=== PATIENT | male | born 1995 | race Caucasian/White ===

== ENCOUNTER 2020-03-19 18:33 | Emergency (ER) | payer SELFPAY ==
[~2020-03-19] VITALS: Ht 182.9 cm; Wt 115.7 kg
== END 2020-03-19 19:45 | disposition home or self-care (01) ==
LOC: ED 18:33
DX: S92.514A Nondisplaced fracture of proximal phalanx of right lesser toe(s), initial encounter for closed fracture (principal); W55.12XA Struck by horse, initial encounter
CPT/HCPCS: 73630; 99283-25

== ENCOUNTER 2020-04-17 10:13 | Emergency (ER) | payer SELFPAY ==
[~2020-04-17] VITALS: Ht 182.9 cm; Wt 115.7 kg
--- OUTSIDE RECORDS SUMMARY | 2020-04-17 10:16 | XMS ---
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 Booker has no Care Guidelines for this patient. [facility] MO[facility] NOTE: Visits indicate total known visits. ED/[facility] [place] TRACKING (12 MO.) 04/17/2020 10:[address] [facility] [place] TYPE: Emergency COMPLAINT: - NECK PAIN 03/19/2020 18:34 [facility] [place] TYPE: Emergency COMPLAINT: - FOOT WAS STEPPED ON BY HORSE DIAGNOSES: - Struck by horse, initial encounter - Nondisplaced fracture of proximal phalanx of right lesser toe(s), initial encounter for closed fracture INPATIENT VISIT TRACKING (12 MO.) No inpatient visits to display in this time frame [id number]
[2020-04-17] MEDS ORDERED: CYCLOBENZAPRINE10 MG PO (10:55)
== END 2020-04-17 11:24 | disposition home or self-care (01) ==
LOC: ED 10:13
DX: S16.1XXA Strain of muscle, fascia and tendon at neck level, initial encounter (principal); W10.9XXA Fall (on) (from) unspecified stairs and steps, initial encounter
CPT/HCPCS: 99283

== ENCOUNTER 2022-05-01 11:34 | Emergency (ER) | payer SELFPAY ==
[~2022-05-01] VITALS: Ht 182.9 cm; Wt 124.7 kg
[~2022-05-01 11:34] MED LIST: CYCLOBENZAPRINE10 MG PO
--- OUTSIDE RECORDS SUMMARY | 2022-05-01 11:42 | XMS ---
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 - Patient with suicidal and/or homicidal ideations eloped. - Patient eloped with IV in place. Details: Patient LWBS. CRITERIA MET - Group Notification CARE PROVIDERS There are no care providers on record at this time. Booker has no Care Guidelines for this patient. E.D. VISIT COUNT (12 MO.) 2 [facility]. TOTAL 2 NOTE: Visits indicate total known visits. ED/C VISIT TRACKING (12 MO.) 05/01/2022 11:35 [facility] [place] TYPE: Emergency COMPLAINT: - ABD PAIN 03/13/2022 22:22 [facility] [place] TYPE: Emergency COMPLAINT: - DENTAL PAIN INPATIENT VISIT TRACKING (12 MO.) No inpatient visits to display in this time frame [id number]
== END 2022-05-01 16:11 | disposition home or self-care (01) ==
LOC: ED 11:34
DX: R10.31 Right lower quadrant pain (principal)
CPT/HCPCS: 36415; 74177; 80053; 85025; 99284-25